=== PATIENT | female | born 1985 | race Caucasian/White ===

== ENCOUNTER 2024-09-11 12:47 | Emergency (ER) | payer MEDICAID, SELFPAY ==
[2024-09-11 12:53] VITALS: BP 93/58; PULSE 80; RESP 18; TEMP 36.5; O2SAT 98; BMI 27.4
--- NOTE | 2024-09-11 13:04 | XR_ITS ---
Examination: Wrist, right 3 views Technique: Wrist AP, oblique, lateral 3 views Date and time of exam: September 11, 2024 1310 hrs. Indications: Injury to the right wrist today Findings: No acute fracture No dislocation No foreign body Impression: No acute fracture
--- NOTE | 2024-09-11 13:04 | PD.EDRME ---
Rapid Medical Screening Exam RME Arrival date/time: 09/11/24 12:47 38-year-old female no past medical history presents emergency department complaining of right wrist pain and laceration after suffering injury with a trailer back because metal object to strike her right wrist. Patient reports is up-to-date with tetanus vaccine. Chief Complaint: Wound/Laceration Vital signs: Vital Signs Temperature 97.7 F 09/11/24 12:53 Pulse Rate 80 09/11/24 12:53 Respiratory Rate 18 09/11/24 12:53 Blood Pressure 93/58 L 09/11/24 12:53 Pulse Oximetry (%) 98 09/11/24 12:53 Oxygen Delivery Method Room Air 09/11/24 12:53 Vital signs reviewed by provider: Yes
--- NOTE | 2024-09-11 13:48 | EDNOTE_ITS ---
ED Wound/Laceration-RME/HPI General Chief Complaint: Wound/Laceration Stated Complaint: LAC TO RIGHT WRIST Time Seen by Provider: 09/11/24 13:06 Source: patient Arrival date/time: 09/11/24 12:47 38-year-old female no past medical history presents emergency department complaining of right wrist pain and laceration after suffering injury after metal object to struck her right wrist. Patient reports is up-to-date with tetanus vaccine. Mode of arrival: ambulatory Limitations: no limitations RME / HPI RME / HPI narrative: 09/11/24 12:47 38-year-old female no past medical history presents emergency department complaining of right wrist pain and laceration after suffering injury with a trailer back because metal object to strike her right wrist. Patient reports is up-to-date with tetanus vaccine. Related Data Home Medications ?Medication ?Instructions ?Recorded ?Confirmed diphenhydramine HCl 25 mg tablet 25 mg PO Q6H PRN Allergic Symptoms 12/13/19 01/08/20 (Benadryl Allergy) vit no.95-ferrous 1 tab PO DAILY 12/13/19 01/08/20 fumarate 28 mg-folic acid 800 mcg tablet () Previous Rx's ?Medication ?Instructions ?Recorded cephalexin 500 mg capsule 500 mg PO BID 7 days #14 caps 09/11/24 ibuprofen 600 mg tablet 600 mg PO Q8H PRN pain #20 tabs 09/11/24 Allergies Allergy/AdvReac Type Severity Reaction Status Date / Time codeine Allergy Intermediate VOMITING Verified 11/09/22 10:43 Review of Systems Review of Systems Systems Reviewed: All systems reviewed, normal except as documented Constitutional Constitutional: Reports system reviewed and no additional complaints, except as documented, Denies body ache(s), Denies chills and Denies fever(s) Eyes Eyes: Reports system reviewed and no additional complaints, except as documented and Denies change in vision ENT Ears, Nose, Mouth, and Throat: Reports system reviewed and no additional complaints, except as documented, Denies disequilibrium, Denies dizziness, Denies sore throat and Denies vertigo Cardiovascular Cardiovascular: Reports system reviewed and no additional complaints, except as documented, Denies chest pain and Denies dyspnea Respiratory Respiratory: Reports system reviewed and no additional complaints, except as documented, Denies chest congestion, Denies cough and Denies dyspnea Gastrointestinal Gastrointestinal: Reports system reviewed and no additional complaints, except as documented, Denies abdominal pain, Denies nausea and Denies vomiting Musculoskeletal Musculoskeletal: Reports system reviewed and no additional complaints, except as documented, Denies abnormal gait and Denies arthralgias Integumentary/Breasts Skin/Breast: Reports system reviewed and no additional complaints, except as documented, Denies erythema, Denies rash and Reports wounds (laceration wrist) Neurologic Neurologic: Reports system reviewed and no additional complaints, except as documented, Denies abnormal gait, Denies disequilibrium, Denies dizziness and Denies vertigo Past Medical History Past Medical History NEUROLOGIC: Negative Neurological Disorders CARDIAC: Negative Cardiac Disorders or Congestive Heart Failure RESPIRATORY: Negative Chronic Obstructive Pulmonary Disease (COPD) GASTROINTESTINAL: Negative Gastrointestinal Disorders, Hepatitis or Colorectal Cancer GENITOURINARY: Negative Genitourinary Disorders, Renal Disease or Prostate Cancer REPRODUCTIVE: Positive Previous Pregnancies (x10); Negative Breast Cancer or Testicular Cancer MUSCULOSKELETAL: Negative Musculoskeletal Disorders or Bone Cancer ENDOCRINE: Negative Endocrine Disorders, Diabetes Mellitus Type 1 or Diabetes Mellitus Type 2 HEMATOLOGIC: Negative Blood Disorders PSYCHO/SOCIAL: Positive Anxiety OTHER HISTORY: Positive Hospitalization (x4 deliveries); Negative Autoimmune Disease, Down Syndrome, Developmental Delay, Shingles, Falls, Blood Transfusions, Blood Transfusion Reaction, Anesthesia Reactions, Organ Transplant, Chemotherapy, Radiation Therapy, Hyperbaric Therapy, MRSA, VRSA, Vancomycin-Resistant Enterococci, Human Immunodeficiency Virus (HIV), Chicken Pox, Measles, Mumps, Rubella ([place]ian Measles), Pertussis, Clostridium Difficile, Breast Cancer, Cervical Cancer, Colorectal Cancer, Lung Cancer, Ovarian Cancer, Prostate Cancer or Testicular Cancer Family History FAMILY HISTORY: Positive Family Psychiatric Problems (anxiety/depression- mother); Negative Family Respiratory Disorders, Family Cardiac Disorders, Family Gastrointestinal Problems, Family Cancer, Family Surgery or Family Anesthesia Reaction Surgical History SURGICAL: Negative Neurologic Surgery, Mastectomy, Lumpectomy, Hysterectomy, Tubal Ligation, Section or Organ Transplant Social History SMOKING STATUS: Never smoker SECOND HAND EXPOSURE: No ED Exam General Limitations: Present no limitations General appearance: Present alert and in no apparent distress Head Head exam: Present atraumatic Eye Eye exam: Present normal appearance, PERRL and EOMI ENT ENT exam: Present normal exam, normal oropharynx and mucous membranes moist Neck Neck exam: Present normal inspection, full ROM and trachea midline Chest Chest inspection: Present normal inspection and symmetric chest wall rise Respiratory Respiratory exam: Present normal lung sounds bilaterally Cardiovascular Cardiovascular exam: Present regular rate, normal rhythm and normal heart sounds Abdominal Exam Abdominal exam: Present soft and normal bowel sounds Extremities Exam Extremities exam: Present normal inspection and full ROM Expanded Upper Extremity Exam Forearm/Wrist exam: Present full ROM, swelling and laceration Hand L/R front image: 2 1. laceration 2. laceration Vascular exam: Normal capillary refill Back Exam Back exam: Present normal inspection and full ROM Neurological Exam Neurological exam: Present alert, oriented X3 and CN II-XII intact Psychiatric Psychiatric exam: Present normal affect and normal mood Skin Skin exam: Present warm, dry, intact and normal color Course Quality Measures none Orders Category Date Time Status Set Up Suture Tray STAT Care 09/11/24 13:03 Active Wound Care [Wound Care] NOW Care 09/11/24 13:03 Active XR wrist comp RT min 3V Stat Exams 09/11/24 13:04 Completed Ketorolac Inj [Toradol Inj] Med 09/11/24 13:10 Discontinued 30 mg IM X1 ONE Lidocaine 1% 20 ml [Xylocaine 1% 20 ML] Med 09/11/24 13:03 Discontinued 20 ml INFL X1 ONE Vital Signs Vital signs: Vital Signs Temperature 97.7 F 09/11/24 12:53 Pulse Rate 80 09/11/24 12:53 Respiratory Rate 18 09/11/24 12:53 Blood Pressure 93/58 L 09/11/24 12:53 Pulse Oximetry (%) 98 09/11/24 12:53 Oxygen Delivery Method Room Air 09/11/24 12:53 98% RA WNL. Procedures -ED Laceration Laceration 1: Site: other (Right wrist laceration) Side (If applicable): right Size (cm): 4 Description: flap Depth: simple, single layer Local Anesthetic: lidocaine 1% Amount of anesthesia used (mL): 1 Pre-repair: wound explored and irrigated extensively Skin layer closed with: nylon Size (cm): 4-0 Number of sutures: 4 Technique: simple, interrupted Laceration 2: Site: other (Right lateral wrist) Side (If applicable): right Size (cm): 3 Description: flap Depth: simple, single layer Local Anesthetic: lidocaine 1% Amount of anesthesia used (mL): 1 Pre-repair: wound explored Skin layer closed with: nylon Size (cm): 4-0 Number of sutures: 3 Technique: simple, interrupted Wound / Laceration MDM Narrative MDM Narrative:: 38-year-old female no past medical history presents emergency department complaining of right wrist pain and laceration after suffering injury after metal object to struck her right wrist. Patient reports is up-to-date with tetanus vaccine. XR wrist negative for fracture. Right hand and wrist full active ROM neurovascularly intact. two lacerations to right wrist irrigated copius amount NS. Wounds approximated with simple interrupted sutures. Lidocaine 1% used as local anaesthetic. No tendon involvement. Patient tolerated well. Instructed return to ER for any worsening symptoms or sign infection. Patient data External records reviewed:: [facility] previous records Clinical information provided by:: patient Social determinants that could affect healthcare access:: none Patient has the following chronic illnesses:: n/a How is presenting disease/condition affected by chronic disease/condition?: no chronic disease Evaluation data The following diagnostics were reviewed and interpreted by me:: radiology exam(s) Lab and/or radiology exams considered but not ordered:: ordered Interpretation Summary: interpreted by me Medications / Prescriptions Medications or Prescriptions considered but not ordered:: n/a Medication administrations:: Medication Administration History Discontinued Medications Ketorolac Tromethamine (Ketorolac Inj 60 Mg/2 Ml Vial) 30 mg IM X1 ONE Stop: 09/11/24 13:11 Last Admin: 09/11/24 13:51 Dose: 30 mg Documented By: YOSEF Lidocaine HCl (Lidocaine Hcl 1% 20 Ml Vial) 20 ml INFL X1 ONE Stop: 09/11/24 13:04 Last Admin: 09/11/24 13:51 Dose: 20 ml Documented By: VG ordered Consultations Consultation(s) initiated? (list below): No Diagnosis Wound Differential Diagnosis: laceration Most likely diagnosis given after review of the tests above:: laceration wrist Admission Indicated Admission indicated?: not indicated Admission Request Was there a request for admission?: No Disposition Plan Disposition Plan: Discharge Discharge Attestation Discharge Attestation: The patient and all family members were given an opportunity to ask questions and understood the discharge instructions. Discharge instructions specifically effects, indications for sooner follow up or return to the emergency department, and the expected course of current diagnosis. Patient condition: Stable Discharge Plan Plan Patient Disposition: HOME (Self Care) Disposition Comment: Stable Prescriptions/Referrals Prescriptions/Med Rec: New cephalexin 500 mg capsule 500 mg PO BID 7 Days Qty: 14 0RF ibuprofen 600 mg tablet 600 mg PO Q8H PRN (Reason: pain) Qty: 20 0RF No Action diphenhydramine HCl [Benadryl Allergy] 25 mg Tablet 25 mg PO Q6H PRN (Reason: Allergic Symptoms) PNV cmb#95-ferrous fumarate-FA [] 28 mg iron- 800 mcg Tablet 1 tab PO DAILY Referrals: Bj Pichardo MD [Primary Care Provider] - In 1 week Problem List Clinical Impression: Laceration of wrist Patient/Caregiver Discharge Instructions Discharge Activity: activity as tolerated Education Materials: ED Laceration: All Closures Additional Instructions: Take medication as prescribed. Keep dressing on for the first 24 hours due to bleeding. May wash with warm water and soap. Keep open to air clean and dry after 24 hours. Follow-up with primary care provider or return to the emergency department in 10 days for suture removal. Return to emergency department for any worsening signs of infection or as needed. Print Language: Albanian Stand Alone Forms: Ly Award Info., Patient Portal Info Letter PA/PRODUCT DEVELOPMENT TECHNICIAN Supervising Physician PA/CASI Supervising Physician: Dr. Jaime
[2024-09-11] MEDS: KETOROLAC INJ 60 MG/2 ML VIAL 30 MG IM (13:51)
[2024-09-11] MEDS: LIDOCAINE HCL 1% 20 ML VIAL INFL (13:51)
== END 2024-09-11 14:45 | disposition home or self-care (01) ==
PROVIDERS: Emergency Provider Emergency Medicine; PCP Family Medicine
DX: S61.511A Laceration without foreign body of right wrist, initial encounter (principal); W22.8XXA Striking against or struck by other objects, initial encounter
CPT/HCPCS: 12002; 73110; 99283; J1885; J3490

== ENCOUNTER 2024-12-13 07:23 | Emergency (ER) | payer BC, MEDICAID, SELFPAY ==
[2024-12-13 07:53] VITALS: BP 113/79; PULSE 81; RESP 20; TEMP 36.7; O2SAT 100; BMI 27.7
--- NOTE | 2024-12-13 07:59 | XR_ITS ---
Examination: Complete OB ultrasound, less than 14 weeks, transabdominal Date and time of exam: December 13, 2024 0909 hours INDICATIONS: Dizziness weakness beginning 5 days ago Technique: Obstetrical ultrasound images less than 14 weeks performed via transabdominal imaging Findings: A normal shaped single intrauterine gestation is present in the uterus. CRL 1.1 cm corresponds to 7 weeks 1 day gestational age Cardiac motion 150 bpm Ultrasonographic survey of visible and placental structures unremarkable. Amniotic fluid volume appears appropriate for this estimated gestational age. Right ovary 3.1 cm arterial flow Left ovary 5.1 cm arterial flow 3.3 cm corpus luteum cyst IMPRESSION: Viable intrauterine gestation 7 weeks 1 day.
--- NOTE | 2024-12-13 07:59 | PD.EDRME ---
Rapid Medical Screening Exam RME Arrival date/time: 12/13/24 07:23 39-year-old female approximately 7 to 8 weeks presents emergency department complains of abdominal pain, constipation, dizziness, fatigue Chief Complaint: Dizziness Vital signs: Vital Signs Temperature 98.1 F 12/13/24 07:53 Pulse Rate 81 12/13/24 07:53 Respiratory Rate 20 12/13/24 07:53 Blood Pressure 113/79 12/13/24 07:53 Pulse Oximetry (%) 100 12/13/24 07:53 Oxygen Delivery Method Room Air 12/13/24 07:53
[2024-12-13 08:24] LABS: Basophils % (Auto) 0 % (0-2.5); Eosinophils # (Auto) 0.1 Thou/mm3 (0.0-0.5); Eosinophils % (Auto) 1 % (0-10); Hematocrit 38.8 % (36.0-46.0); Hemoglobin 13.7 g/dL (12.0-16.0); Immature Granulocytes % (Auto) 0 % (0-0); Immature Granulocytes Auto 0.03 Thou/mm3 (0.00-0.00); Lymphocytes # (Auto) 2.2 Thou/mm3 (1.0-4.8); Lymphocytes % (Auto) 23 % (10-50); Mean Corpuscular HGB Conc 35.3 g/dl (31.0-37.0); Mean Corpuscular Hemoglobin 30.6 pg (25.0-35.0); Mean Corpuscular Volume 87 fL (80-100); Monocytes # (Auto) 0.6 Thou/mm3 (0.0-0.8); Monocytes % (Auto) 6 % (0-12); Neutrophils # (Auto) 6.6 Thou/mm3 (1.8-7.7); Neutrophils % (Auto) 70 % (37-80); Nucleated Red Blood Cell % 0 /100 WBC (0); Platelet Count 298 Thou/mm3 (140-440); RDW Standard Deviation 39.6 fL (36.4-46.3); Red Blood Count 4.47 Miln/mm3 (4.00-5.20); White Blood Count 9.5 Thou/mm3 (3.6-11.0)
[2024-12-13 08:42] LABS: Alanine Aminotransferase 15 U/L (10-49); Albumin, Serum 4.5 gm/dL (3.5-5.0); Albumin/Globulin Ratio 1.6 (1.2-2.2); Alkaline Phosphatase 87 U/L (46-116); Anion Gap 6 (7-16); Aspartate Amino Transferase 16 U/L (0-34); BUN/Creatinine Ratio 13 Ratio (12-20); Bilirubin,Total 0.3 mg/dL (0.3-1.2); Blood Urea Nitrogen 8 mg/dL (9-23); Calcium 9.6 mg/dL (8.3-10.6); Calcium (Corrected) 9.6 mg/dL (8.5-10.1); Carbon Dioxide 23.2 mMol/L (20.0-31.0); Chloride 108 mMol/L (98-107); Creatinine (Component) 0.6 mg/dL (0.6-1.3); Estimated Creatinine Clearance 129.3 mL/min (>60); Globulin 2.9 gm/dL (2.3-3.5); Glucose 117 mg/dL (74-106); Lipase 37 U/L (12-53); Osmolality,Calculated 273 (275-295); Potassium 3.7 mMol/L (3.4-5.1); Sodium 137 mMol/L (136-145); Total Protein 7.4 gm/dL (5.7-8.2); eGFR > 60 See Note
[2024-12-13 09:07] LABS: Collection Type, Urine Clean Catch
[2024-12-13 09:34] LABS: Beta HCG,Quantitative 82736 mIU/mL (<5.0)
[2024-12-13 09:42] LABS: Bacteria,Urine Rare; Bilirubin,Urine Negative (Negative); Blood,Urine Trace (Negative); Clarity,Urine Clear (Clear/Hazy); Color,Urine Colorless (Lt Yel-Yel); Culture Indicated,Urine Not Indicated; Glucose, Urine Negative (Negative); Ketones,Urine Negative (Negative); Leukocyte Esterase,Urine Positive (Negative); Nitrite,Urine Negative (Negative); PH,Urine 6.5 (5.0-7.0); Protein,Urine Negative (Neg - Trace); RBC,Urine 2 /hpf (0-3); Squamous Epithelial Cell,Urine 6 /hpf (0-5); Urobilinogen,Urine Negative mg/dL (0.0-1.0); WBC,Urine 2 /hpf (0-5)
--- NOTE | 2024-12-13 12:47 | EDNOTE_ITS ---
<Statement entered by Rachel Chu MD - 12/14/24 11:54> As co-signing physician, I was present and available for consult prn. I concur with the plan and care as documented by the midlevel provider. ED Dizzyness RME/HPI General Chief Complaint: Dizziness Stated Complaint: DIZZINESS, WEAKNESS AT 8WKS; I'M IRON DEFICIENT Time Seen by Provider: 12/13/24 12:10 Arrival date/time: 12/13/24 07:23 39 year old female present to emergency room with c/o of dizziness, weakness for 5 days. pt report being constipated for 3 weeks. pt is currently 8 weeks . SEVERITY: Symptoms are described as being severe with limitations on activities of daily living CONTEXT: The patient is unable to identify any inciting events. DURATION/TIMING: The symptoms started approximately 5 day ago and have been constant since and have been progressive getting worse. ASSOCIATED SYMPTOMS:nausea,dizziness, weakness, chest pain MODIFYING FACTORS: The patient is unable to identify any alleviating or aggravating symptoms. PERTINENT ROS: no fevers, no cough, no pleuritic pain, no ripping or tearing sensations, denies any lower extremity edema and no unilateral swelling, no vomiting, diarrhea, no dizziness/headache no rash no loc/syncope episode no abd/back pain no dsyuria,urgency,frequency REVIEW OF SYSTEMS: See History of Present Illness - with the exception of those mentioned in the history of present illness, all other systems reviewed and reported as negative GENERAL: In general the patient is awake, interactive, in an emergency department gurney. HEAD/EYES/EARS/NOSE/THROAT: normo-cephalic, atraumatic, mucus membranes are moist, anicteric, palpebral conjunctiva is pink, trachea is midline. CARDIOVASCULAR: regular rate and regular rhythm, no murmurs, heart sounds are not distant, strong pulses in all four extremities that are equal and symmetric bilateral upper and lower extremities, normal capillary refill. CHEST/PULMONARY: normal chest rise and fall, good air movement, clear to auscultation bilaterally, normal inspiratory to expiratory ratios without evidence of respiratory distress. NECK: No midline/Paraspinal tenderness, no step off ROM/Strenght intact No Kernig and bruzinski sign. No trauma ABDOMEN: soft, not tender, no masses appreciated BACK: normal range of motion without pain. NEUROLOGICAL: cranio-facial features are symmetric, moves all four extremities equally without obvious limitations or weakness. EXTREMITY: no tenderness to palpation over the long bones or large joints of the bilateral upper and lower extremities, no joint swelling, no joint erythema, no signs of trauma, no unilateral leg swelling and no peripheral edema. SKIN: warm, dry, well-perfused, no jaundice, no rash, no telangiectasias or petechia. PSYCH: calm, cooperative, no evidence of psychosis or agitation RME / HPI RME / HPI Narrative: 12/13/24 07:23 39-year-old female approximately 7 to 8 weeks presents emergency department complains of abdominal pain, constipation, dizziness, fatigue Related Data Home Medications ?Medication ?Instructions ?Recorded ?Confirmed diphenhydramine HCl 25 mg tablet 25 mg PO Q6H PRN Nathanael rgic Symptoms 12/13/19 01/08/20 (Benadryl Allergy) vit no.95-ferrous 1 tab PO DAILY 12/13/1906/21 fumarate 28 mg-folic acid 800 mcg tablet () Previous Rx's ?Medication ?Instructions ?Recorded ibuprofen 600 mg tablet 600 mg PO Q8H PRN pain #20 t abs 09/11/24 Allergies Allergy/AdvReac Type Severity Reaction Status Date / Time codeine Allergy Intermediate VOMITING Verified 12/13/24 07:25 Course Quality Measures none Orders Category Date Time Status Bedside Influenza A&B Antigen Test NOW Care 12/13/24 12:10 Completed EKG (ED ONLY) *Do not use* NOW Care 12/13/24 12:49 Completed EKG (ED Only) Stat Exams 12/13/24 12:48 Draft US OB <= 14 weeks fetus Stat Exams 12/13/24 07:59 Completed Beta HCG,Quantitative Stat Lab 12/13/24 08:08 Completed CBC Stat Lab 12/13/24 08:08 Completed Comprehensive Metabolic Panel Stat Lab 12/13/24 08:08 Completed Lipase Stat Lab 12/13/24 08:08 Completed Mag [Magnesium] Stat Lab 12/13/24 08:08 Completed Troponin I Stat Lab 12/13/24 08:08 Completed Type and Screen Stat Lab 12/13/24 08:08 Completed UA, C/S IF [Urinalysis, C/S if Indicated] Stat Lab 12/13/24 08:52 Completed Milk Of Magnesia Susp [Mom Susp] Med 12/13/24 12:46 Discontinued 30 ml PO X1 ONE Promethazine Inj [Phenergan Inj] 12.5 mg Med 12/13/24 12:46 Discontinued Sodium Chloride 0.9% [Ns] 50 ml IV X1 Sodium Chloride 0.9% 1000 ml [Ns] 1,000 ml Med 12/13/24 12:46 Discontinued IV 999 mls/hr Reevaluation(s) Reevaluation #1: pt is feeling better and comfortable to go home. Vital Signs Vital signs: Vital Signs Temperature 98.1 F 12/13/24 07:53 Pulse Rate 81 12/13/24 07:53 Respiratory Rate 20 12/13/24 07:53 Blood Pressure 113/79 12/13/24 07:53 Pulse Oximetry (%) 100 12/13/24 07:53 Oxygen Delivery Method Room Air 12/13/24 07:53 Procedures -ED EKG Interpretation #1: Date of EK12/13/24 Rate: 67 Interpretation: Reviewed by me EKG Impression: Normal sinus rhythm, No acute ST-T changes, No ectopy, No ischemic changes and Normal QRS Dizziness MDM Narrative MDM Narrative:: Based on History, Exam, and Findings, presentation not consistent with syncope, seizure, stroke, meningitis, symptomatic anemia (gastrointestinal bleed), UTI, Anemia, PE, Increased ICP (cerebral tumor/mass), ICH. Additionally, I have a low suspicion for AOM, labyrinthitis, or other infectious process. Most likely symptoms are due to not eating and hydrating. Reassessment: Prior to discharge symptoms controlled, patient well appearing. Disposition:? Discharge. Strict return precautions discussed w/ full understanding. Advise follow up with primary care provider within 24-48 hours.? Patient data External records reviewed:: [facility] previous records Clinical information provided by:: none Social determinants that could affect healthcare access:: none Patient has the following chronic illnesses:: drug abuse, How is presenting disease/condition affected by chronic disease/condition?: uneffected by Evaluation data The following diagnostics were reviewed and interpreted by me:: lab results, radiology exam(s) and EKG tracing(s) Lab and/or radiology exams considered but not ordered:: none Interpretation Summary: US: A normal shaped single intrauterine gestation is present in the uterus. CRL 1.1 cm corresponds to 7 weeks 1 day gestational age Cardiac motion 150 bpm Ultrasonographic survey of visible and placental structures unremarkable. Amniotic fluid volume appears appropriate for this estimated gestational age. Right ovary 3.1 cm arterial flow Left ovary 5.1 cm arterial flow 3.3 cm corpus luteum cyst IMPRESSION: Viable intrauterine gestation 7 weeks 1 day. cbc/cmp no acute findings hc urine no infection flu: negative trop negative Medications / Prescriptions Medications or Prescriptions considered but not ordered:: none Medication administrations:: Medication Administration History Discontinued Medications Sodium Chloride (Ns) 1,000 mls @ 999 mls/hr IV .Q1H1M ONE Stop: 12/13/24 13:46 Last Infusion: 12/13/24 14:15 Dose: Infused Documented By: Admin: 12/13/24 13:05 Dose: 999 mls/hr Documented By: YAYA Promethazine HCl 12.5 mg/ (Sodium Chloride) 50.5 mls @ 2.5 mls/min IV X1 ONE Stop: 12/13/24 13:06 Last Infusion: 12/13/24 13:45 Dose: Infused Documented By: Admin: 12/13/24 13:21 Dose: 2.5 mls/min Documented By: YAYA Magnesium Hydroxide (Milk Of Magnesia Susp 30 Ml Udc) 30 ml PO X1 ONE; Protocol Stop: 12/13/24 12:47 Last Admin: 12/13/24 13:06 Dose: 30 ml Documented By: YAYA none Consultations Consultation(s) initiated? (list below): No Diagnosis Most likely diagnosis given after review of the tests above:: , anemia, ectopic, dehydration, flu Admission Indicated Admission indicated?: not indicated Admission Request Was there a request for admission?: No Disposition Plan Disposition Plan: Discharge Discharge Attestation Discharge Attestation: The patient and all family members were given an opportunity to ask questions and understood the discharge instructions. Discharge instructions specifically effects, indications for sooner follow up or return to the emergency department, and the expected course of current diagnosis. Patient condition: Stable Discharge Plan Plan Patient Disposition: HOME (Self Care) Prescriptions/Referrals Prescriptions/Med Rec: No Action diphenhydramine HCl [Benadryl Allergy] 25 mg Tablet 25 mg PO Q6H PRN (Reason: Allergic Symptoms) PNV cmb#95-ferrous fumarate-FA [] 28 mg iron- 800 mcg Tablet 1 tab PO DAILY ibuprofen 600 mg tablet 600 mg PO Q8H PRN (Reason: pain) Qty: 20 0RF Referrals: Bj Pichardo MD [Primary Care Provider] - In 1 week Problem List Clinical Impression: , Constipation Patient/Caregiver Discharge Instructions Education Materials: First Trimester, ED Constipation (Adult) Print Language: Turkish Stand Alone Forms: Ly Award Info., Patient Portal Info Letter
--- NOTE | 2024-12-13 12:48 | EKG_ITS ---
[facility] Test Date: 2024-12-13 Pat Name: BRITTNEY REVELES Department: Room: - Gender: Female Method Consultant: : 1985 Requested By: Chris Rodriguez Order Number: [id number] Reading MD: Chris Rodriguez Measurements Intervals [place] Rate: 67 P: 2 SD: 141 QRS: -9 QRSD: 76 T: 11 QT: 390 QTc: 414 Interpretive Statements SINUS RHYTHM No previous ECG available for comparison /store/S0/[id number]/ecg/[id number].pdf
[2024-12-13] MEDS: SODIUM CHLORIDE 0.9% 1000 ML 1,000 ML 999 ML IV (13:05)
[2024-12-13] MEDS: Milk Of Magnesia Susp 30 ML UDC PO (13:06)
[2024-12-13] MEDS: PROMETHAZINE INJ 12.5 MG in SODIUM CHLORIDE 0.9% 50 ML 2.5 MG IV (13:21)
[2024-12-13 13:33] LABS: Magnesium 1.8 mg/dL (1.6-2.6); Troponin I < 0.002 ng/mL (0.0-0.045)
== END 2024-12-13 15:08 | disposition home or self-care (01) ==
PROVIDERS: Nurse Practitioner Primary Care; Physician Assistant; Emergency Provider Emergency Medicine; PCP Family Medicine
DX: O99.611 Diseases of the digestive system complicating pregnancy, first trimester (principal); K59.00 Constipation, unspecified; Z3A.01 Less than 8 weeks gestation of pregnancy
CPT/HCPCS: 36415; 76801; 80053; 81001; 83690; 83735; 84484; 84702; 85025; 86850; 86900; 86901; 87400; 93005; 99284; J2550; J7030; A9270

== ENCOUNTER 2025-03-10 20:36 | Emergency (ER) | payer BC, MEDICAID, SELFPAY ==
[2025-03-10 20:37] VITALS: BMI 26.6
[2025-03-10 20:42] VITALS: BP 124/85; PULSE 85; RESP 19; TEMP 36.4; O2SAT 100
--- NOTE | 2025-03-10 21:18 | PD.EDRME ---
Rapid Medical Screening Exam RME Arrival date/time: 03/10/25 20:36 39-year-old female presents to the emergency department for complaint of nausea vomiting patient believes she has alcohol poisoning patient reports he drank last night Chief Complaint: Nausea/Vomiting/Diarrhea Time Seen by Provider: 03/10/25 20:55 Vital signs: Vital Signs Temperature 97.6 F 03/10/25 20:42 Pulse Rate 85 03/10/25 20:42 Respiratory Rate 19 03/10/25 20:42 Blood Pressure 124/85 H 03/10/25 20:42 Pulse Oximetry (%) 100 03/10/25 20:42 Oxygen Delivery Method Room Air 03/10/25 20:42
--- NOTE | 2025-03-10 21:29 | EDNOTE_ITS ---
Nausea/Vomit./Diarrhea-RME/HPI General Chief complaint: Nausea/Vomiting/Diarrhea Stated complaint: ETOH INDUCED VOMITING Time Seen by Provider: 03/10/25 20:55 Arrival date/time: 03/10/25 20:36 RME / HPI RME / HPI Narrative: 03/10/25 20:36 39-year-old female presents to the emergency department for complaint of nausea vomiting patient believes she has alcohol poisoning patient reports he drank last night ------- Dr. Dominique?s Main ED Evaluation: 39yo female presents to the ED for complaints of nausea and vomiting. Patient states she was drinking alcohol last night, reporting she's been hungover all day today. She states she's been hungover in the past, but reports it's worse than usual today because I can't keep anything down . Patient has not taken anything at home for her symptoms. Last alcohol intake was 2300 last night. Denies any abdominal pain, chest pain, shortness of breath or any other associated symptoms. Related Data Home Medications ?Medication ?Instructions ?Recorded ?Confirmed diphenhydramine HCl 25 mg tablet 25 mg PO Q6H PRN Nathanael rgic Symptoms 12/13/19 01/08/20 (Benadryl Allergy) vit no.95-ferrous 1 tab PO DAILY 12/13/1906/21 fumarate 28 mg-folic acid 800 mcg tablet () Previous Rx's ?Medication ?Instructions ?Recorded ibuprofen 600 mg tablet 600 mg PO Q8H PRN pain #20 t abs 09/11/24 Allergies Allergy/AdvReac Type Severity Reaction Status Date / Time codeine Allergy Intermediate VOMITING Verified 12/13/24 07:25 Review of Systems Review of Systems Systems Reviewed: All systems reviewed, normal except as documented Past Medical History Past Medical History NEUROLOGIC: Negative Neurological Disorders CARDIAC: Negative Cardiac Disorders or Congestive Heart Failure RESPIRATORY: Negative Chronic Obstructive Pulmonary Disease (COPD) GASTROINTESTINAL: Negative Gastrointestinal Disorders, Hepatitis or Colorectal Cancer GENITOURINARY: Negative Genitourinary Disorders, Renal Disease or Prostate Cancer REPRODUCTIVE: Positive Previous Pregnancies (x10); Negative Breast Cancer or Testicular Cancer MUSCULOSKELETAL: Negative Musculoskeletal Disorders or Bone Cancer ENDOCRINE: Negative Endocrine Disorders, Diabetes Mellitus Type 1 or Diabetes Mellitus Type 2 HEMATOLOGIC: Negative Blood Disorders PSYCHO/SOCIAL: Positive Anxiety OTHER HISTORY: Positive Hospitalization (x4 deliveries); Negative Autoimmune Disease, Down Syndrome, Developmental Delay, Shingles, Falls, Blood Transfusions, Blood Transfusion Reaction, Anesthesia Reactions, Organ Transplant, Chemotherapy, Radiation Therapy, Hyperbaric Therapy, MRSA, VRSA, Vancomycin-Resistant Enterococci, Human Immunodeficiency Virus (HIV), Chicken Pox, Measles, Mumps, Rubella ([place] Measles), Pertussis, Clostridium Difficile, Breast Cancer, Cervical Cancer, Colorectal Cancer, Lung Cancer, Ovarian Cancer, Prostate Cancer or Testicular Cancer Family History FAMILY HISTORY: Positive Family Psychiatric Problems (anxiety/depression- mother); Negative Family Respiratory Disorders, Family Cardiac Disorders, Family Gastrointestinal Problems, Family Cancer, Family Surgery or Family Anesthesia Reaction Surgical History SURGICAL: Negative Neurologic Surgery, Mastectomy, Lumpectomy, Hysterectomy, Tubal Ligation, Section or Organ Transplant Social History SMOKING STATUS: Current some day smoker SECOND HAND EXPOSURE: No ED Exam Narrative Physical exam: GENERAL APPEARANCE: AxOx4, generally well-appearing, appears mildly uncomfortable, nontoxic, no acute distress. HEENT: NC, AT. MMM. EOMI, clear conjunctiva, oropharynx clear. NECK: Supple without lymphadenopathy. No stiffness or restricted ROM. HEART: Normal rate and regular rhythm, normal S1/S1, no m/r/g LUNGS: CTAB, moving air well. No crackles or wheezes are heard. ABDOMEN: Soft, nontender, nondistended with good bowel sounds heard. BACK: No midline C/T/L spine pain or deformity, No CVAT, no obvious deformity. EXTREMITIES: Without cyanosis, clubbing or edema. MUSCULOSKELETAL: FROM of all major joints, no chest tenderness NEUROLOGICAL: Grossly nonfocal. Alert and oriented, moving all 4 extremities. CN not formally tested but appear grossly intact. Skin: Warm and dry without any rash. Course Quality Measures none Orders Category Date Time Status Ibuprofen Tab [Motrin Tab] Med 03/10/25 21:29 Discontinued 600 mg PO X1 ONE Metoclopramide Inj [Reglan Inj] Med 03/10/25 21:18 Discontinued 10 mg IM X1 ONE Ondansetron Odt [Zofran Odt] Med 03/10/25 21:29 Discontinued 4 mg PO X1 ONE mg Hyd/Al Hyd/Jaskaran Susp [Maalox Susp] Med 03/10/25 21:29 Discontinued 30 ml PO X1 ONE Vital Signs Vital signs: Vital Signs Temperature 97.6 F 03/10/25 20:42 Pulse Rate 85 03/10/25 20:42 Respiratory Rate 19 03/10/25 20:42 Blood Pressure 124/85 H 03/10/25 20:42 Pulse Oximetry (%) 100 03/10/25 20:42 Oxygen Delivery Method Room Air 03/10/25 20:42 Nausea/Vomiting/Diarrhea MDM Narrative MDM Narrative:: Scribe Attestation: 03/10/25 Shira Ritter am scribing for and in the presence of Dr. Dominique. Patient data External records reviewed:: [facility] previous records (Per chart review, patient was seen here on 12/13/24 for constipation.) Clinical information provided by:: patient Social determinants that could affect healthcare access:: alcohol use Patient has the following chronic illnesses:: none How is presenting disease/condition affected by chronic disease/condition?: no chronic disease Evaluation data The following diagnostics were reviewed and interpreted by me:: other (specify) (none) Lab and/or radiology exams considered but not ordered:: none Interpretation Summary: none Medications / Prescriptions Medications / Prescriptions considered but not ordered:: none Medication administrations:: Medication Administration History Discontinued Medications Al Hydrox/Mg Hydrox/Simethicone (Mg Hyd/Al Hyd/Jaskaran (Maalox Reg) Susp 30 Ml Udc) 30 ml PO X1 ONE Stop: 03/10/25 21:30 Ibuprofen (Ibuprofen Tab 600 Mg Tablet) 600 mg PO X1 ONE Stop: 03/10/25 21:30 Metoclopramide HCl (Metoclopramide Inj 5 Mg/Ml Vial 2 Ml) 10 mg IM X1 ONE; Protocol Stop: 03/10/25 21:19 Last Admin: 03/10/25 23:10 Dose: 10 mg Documented By: Ondansetron HCl (Ondansetron Odt 4 Mg Tabrap) 4 mg PO X1 ONE; Protocol Stop: 03/10/25 21:30 Last Admin: 03/10/25 23:10 Dose: 4 mg Documented By: see above Consultations Consultation(s) initiated? (list below): No Diagnosis Nausea Differential Diagnosis: other (alcohol intoxication, GERD, dehydration, hangover) Most likely diagnosis given after review of the tests above:: Patient eloped. Admission Indicated Admission indicated?: not indicated Admission Request Was there a request for admission?: No Disposition Plan Disposition Plan: other (specify) (Patient eloped.) Discharge Plan Plan Patient Disposition: Elopement Prescriptions/Referrals Prescriptions/Med Rec: No Action diphenhydramine HCl [Benadryl Allergy] 25 mg Tablet 25 mg PO Q6H PRN (Reason: Allergic Symptoms) PNV cmb#95-ferrous fumarate-FA [] 28 mg iron- 800 mcg Tablet 1 tab PO DAILY ibuprofen 600 mg tablet 600 mg PO Q8H PRN (Reason: pain) Qty: 20 0RF Referrals: Bj Pichardo MD [Primary Care Provider] - In 1 week Problem List Clinical Impression: Hangover Patient/Caregiver Discharge Instructions Print Language: Pakistani
[2025-03-10] MEDS: METOCLOPRAMIDE INJ 5 MG/ML VIAL 2 ML 10 MG IM (23:10)
[2025-03-10] MEDS: ONDANSETRON ODT 4 MG TABRAP PO (23:10)
== END 2025-03-10 23:40 | disposition left against medical advice (07) ==
LOC: SERX 23:31
PROVIDERS: Emergency Provider Emergency Medicine; PCP Family Medicine
DX: F10.129 Alcohol abuse with intoxication, unspecified (principal); Z53.29 Procedure and treatment not carried out because of patient's decision for other reasons
CPT/HCPCS: 80053; 80307; 81001; 81025; 83690; 85025; 96372; 99281; J2765; Q0162

== ENCOUNTER 2025-05-31 18:39 | Emergency (ER) | payer MEDICAID, SELFPAY ==
[2025-05-31 18:40] VITALS: BMI 25.7
--- NOTE | 2025-05-31 18:58 | EKG_ITS ---
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
[2025-05-31 19:06] VITALS: BP 121/87; PULSE 82; RESP 20; TEMP 36.7; O2SAT 99
--- NOTE | 2025-05-31 19:34 | EDNOTE_ITS ---
ED Arrhythmia Palp. RME/HPI General Chief Complaint: Arrhythmia/Palpitations Stated Complaint: HR IS RACING HR 114; ANXIETY; BODY VIBRATING Time Seen by Provider: 05/31/25 19:20 Arrival date/time: 05/31/25 18:39 39F with history of drug use presents to ED with heart palps, anxiety, body vibrating, and numbness. Patient took cocaine yesterday and drank a Red Bull. Limitations: no limitations Related Data Home Medications ?Medication ?Instructions ?Recorded ?Confirmed diphenhydramine HCl 25 mg tablet 25 mg PO Q6H PRN Nathanael rgic Symptoms 12/13/19 01/08/20 (Benadryl Allergy) vit no.95-ferrous 1 tab PO DAILY 12/13/1906/21 fumarate 28 mg-folic acid 800 mcg tablet () Previous Rx's ?Medication ?Instructions ?Recorded ibuprofen 600 mg tablet 600 mg PO Q8H PRN pain #20 t abs 09/11/24 Allergies Allergy/AdvReac Type Severity Reaction Status Date / Time codeine Allergy Intermediate VOMITING Verified 05/31/25 18:42 Review of Systems Review of Systems Systems Reviewed: All systems reviewed, normal except as documented Constitutional Constitutional: Reports system reviewed and no additional complaints, except as documented, Denies fever(s) and Denies headache(s) ENT Ears, Nose, Mouth, and Throat: Denies disequilibrium and Denies headache(s) Cardiovascular Cardiovascular: Reports system reviewed and no additional complaints, except as documented, Reports as per HPI, Denies chest pain, Denies dyspnea and Reports palpitations Respiratory Respiratory: Reports system reviewed and no additional complaints, except as documented, Denies cough and Denies dyspnea Gastrointestinal Gastrointestinal: Reports system reviewed and no additional complaints, except as documented, Denies abdominal pain, Denies nausea and Denies vomiting Musculoskeletal Musculoskeletal: Reports numbness Neurologic Neurologic: Reports system reviewed and no additional complaints, except as documented, Reports as per HPI, Denies confusion, Denies disequilibrium, Denies headache(s), Reports numbness and Reports tremor(s) Psychiatric Psychiatric: Reports as per HPI, Reports anxiety and Denies confusion Endocrine Endocrine: Reports palpitations Past Medical History Past Medical History NEUROLOGIC: Negative Neurological Disorders CARDIAC: Negative Cardiac Disorders or Congestive Heart Failure RESPIRATORY: Negative Chronic Obstructive Pulmonary Disease (COPD) GASTROINTESTINAL: Negative Gastrointestinal Disorders, Hepatitis or Colorectal Cancer GENITOURINARY: Negative Genitourinary Disorders, Renal Disease or Prostate Cancer REPRODUCTIVE: Positive Previous Pregnancies (x10); Negative Breast Cancer or Testicular Cancer MUSCULOSKELETAL: Negative Musculoskeletal Disorders or Bone Cancer ENDOCRINE: Negative Endocrine Disorders, Diabetes Mellitus Type 1 or Diabetes Mellitus Type 2 HEMATOLOGIC: Negative Blood Disorders PSYCHO/SOCIAL: Positive Anxiety OTHER HISTORY: Positive Hospitalization (x4 deliveries); Negative Autoimmune Disease, Down Syndrome, Developmental Delay, Shingles, Falls, Blood Transfusions, Blood Transfusion Reaction, Anesthesia Reactions, Organ Transplant, Chemotherapy, Radiation Therapy, Hyperbaric Therapy, MRSA, VRSA, Vancomycin-Resistant Enterococci, Human Immunodeficiency Virus (HIV), Chicken Pox, Measles, Mumps, Rubella ([place] Measles), Pertussis, Clostridium Difficile, Breast Cancer, Cervical Cancer, Colorectal Cancer, Lung Cancer, Ovarian Cancer, Prostate Cancer or Testicular Cancer Family History FAMILY HISTORY: Positive Family Psychiatric Problems (anxiety/depression- mother); Negative Family Respiratory Disorders, Family Cardiac Disorders, Family Gastrointestinal Problems, Family Cancer, Family Surgery or Family Anesthesia Reaction Surgical History SURGICAL: Negative Neurologic Surgery, Mastectomy, Lumpectomy, Hysterectomy, Tubal Ligation, Section or Organ Transplant Social History SMOKING STATUS: Current some day smoker SECOND HAND EXPOSURE: No ED Exam General Limitations: Present no limitations General appearance: Present alert and anxious Head Head exam: Present atraumatic Eye Eye exam: Present normal appearance, PERRL and EOMI ENT ENT exam: Present normal exam, normal oropharynx and mucous membranes moist Neck Neck exam: Present normal inspection, full ROM and trachea midline Chest Chest inspection: Present normal inspection and symmetric chest wall rise Respiratory Respiratory exam: Present normal lung sounds bilaterally Cardiovascular Cardiovascular exam: Present regular rate, normal rhythm and normal heart sounds Abdominal Exam Abdominal exam: Present soft and normal bowel sounds Extremities Exam Extremities exam: Present normal inspection and full ROM Back Exam Back exam: Present normal inspection and full ROM Neurological Exam Neurological exam: Present alert, oriented X3 and CN II-XII intact Psychiatric Psychiatric exam: Present normal affect and normal mood Skin Skin exam: Present warm, dry, intact and normal color Course Quality Measures none Orders Category Date Time Status EKG (ED ONLY) *Do not use* NOW Care 05/31/25 18:58 Completed EKG (ED Only) Stat Exams 05/31/25 18:58 Draft Diazepam [Valium] Med 05/31/25 19:20 Discontinued 10 mg PO X1 ONE Vital Signs Vital signs: Vital Signs Temperature 98.1 F 05/31/25 19:06 Pulse Rate 82 05/31/25 19:06 Respiratory Rate 20 05/31/25 19:06 Blood Pressure 121/87 H 05/31/25 19:06 Pulse Oximetry (%) 99 05/31/25 19:06 Oxygen Delivery Method Room Air 05/31/25 19:06 Arrhythmia/Palpitations MDM Narrative MDM Narrative:: 39F with history of drug use presents to ED with heart palps, anxiety, body vibrating, and numbness. Patient took cocaine yesterday and drank a Red Bull. Physical exam reveals anxious-appearing female. Patient is aferile and alert. Speech normal. EKG is NSR. Valium improved symptoms. Meds and vp & general counsel given. Patient data External records reviewed:: [facility] previous records Clinical information provided by:: patient Social determinants that could affect healthcare access:: none Patient has the following chronic illnesses:: none How is presenting disease/condition affected by chronic disease/condition?: no chronic disease Evaluation data The following diagnostics were reviewed and interpreted by me:: EKG tracing(s) Lab and/or radiology exams considered but not ordered:: ordered Interpretation Summary: above Medications / Prescriptions Medications or Prescriptions considered but not ordered:: ordered Medication administrations:: Medication Administration History Discontinued Medications Diazepam (Diazepam 5 Mg Tablet) 10 mg PO X1 ONE Stop: 05/31/25 19:21 Consultations Consultation(s) initiated? (list below): No Diagnosis Differential diagnosis arrhythmia/palpitations: palpitations, anxiety, sinus tachycardia, artial fibrillation, artial flutter, ventricular premature beats, supraventricular tachycardia, ventricular tachycardia, WPW and other (drug adverse effect) Most likely diagnosis given after review of the tests above:: drug adverse effect Admission Indicated Admission indicated?: not indicated Admission Request Was there a request for admission?: No Disposition Plan Disposition Plan: Discharge Discharge Attestation Discharge Attestation: The patient and all family members were given an opportunity to ask questions and understood the discharge instructions. Discharge instructions specifically effects, indications for sooner follow up or return to the emergency department, and the expected course of current diagnosis. Patient condition: Stable Discharge Plan Plan Patient Disposition: HOME (Self Care) Discharge Disposition comment: Stable Prescriptions/Referrals Prescriptions/Med Rec: No Action diphenhydramine HCl [Benadryl Allergy] 25 mg Tablet 25 mg PO Q6H PRN (Reason: Allergic Symptoms) PNV no.95-ferrous fumarate-FA [] 28 mg iron- 800 mcg Tablet 1 tab PO DAILY ibuprofen 600 mg tablet 600 mg PO Q8H PRN (Reason: pain) Qty: 20 0RF Referrals: No Primary/Family,Physician [Primary Care Provider] - In 1 week Problem List Clinical Impression: Adverse drug effect Patient/Caregiver Discharge Instructions Education Materials: Cocaine: Understanding Its Effects, Cocaine: Getting Help Additional Instructions: Please follow-up with PCP within 24-48 hours and return immediately if symptoms worsen. Print Language: Luxembourger Stand Alone Forms: Patient Portal Info Letter PA/AUTOMOTIVE CONSULTANT Supervising Physician PA/AUTOMOTIVE CONSULTANT Supervising Physician: Dr. Cade
[2025-05-31] MEDS: DIAZEPAM 5 MG TABLET 10 MG PO (19:44)
== END 2025-05-31 20:44 | disposition home or self-care (01) ==
PROVIDERS: Emergency Provider Emergency Medicine
DX: T40.5X1A Poisoning by cocaine, accidental (unintentional), initial encounter (principal); F41.9 Anxiety disorder, unspecified; R00.2 Palpitations
CPT/HCPCS: 93005; 99283; A9270

== ENCOUNTER 2025-06-05 18:45 | Emergency (ER) | payer MEDICAID, SELFPAY ==
[2025-06-05 18:46] VITALS: BMI 27.4
[2025-06-05 19:10] VITALS: BP 116/77; PULSE 109; RESP 20; TEMP 36.3; O2SAT 99
--- NOTE | 2025-06-05 20:27 | PD.EDADDENDU ---
Emergency Room Addendum Addendum Narrative: When I looked for the patient to start my evaluation, I was told the patient eloped. Jaime Bravo MD
== END 2025-06-05 20:25 | disposition left against medical advice (07) ==
LOC: SERX 20:28
PROVIDERS: Emergency Provider Emergency Medicine
DX: Z53.21 Procedure and treatment not carried out due to patient leaving prior to being seen by health care provider (principal)
CPT/HCPCS: 99282